=== PATIENT | male | born 1960 | race African-American/Black ===

== ENCOUNTER 2019-11-03 06:51 | Inpatient (IN) | payer MEDICAID, OTHER, SELFPAY ==
[~2019-11-03] VITALS: Ht 175.3 cm; Wt 69.4 kg
[2019-11-03] MEDS ORDERED: ONDANSETRON HCL 4MG/2ML INJ IV STA ×2 (07:38→08:57)
[2019-11-03] MEDS ORDERED: MORPHINE SULFATE 4 MG/ML CPJ (NOT FOR IM USE) IV STA ×2 (07:38→08:57)
[2019-11-03 08:22] LABS: BASOPHILS % 0.7 % (0.0-2.0); EOSINOPHILS % 1.9 % (0.0-5.0); HEMATOCRIT. 45.5 % (42.0-52.0); HEMOGLOBIN. 15.6 g/dL (14.0-18.0); LYMPHOCYTES % 27.2 % (20.0-50.0); MEAN CORPUSCULAR VOLUME 90.3 fL (80.0-94.0); MEAN PLATELET VOLUME 8.3 fl (7.4-10.4); NEUTROPHILS % 60.2 % (40.0-76.0); PLATELET 278 x1000/uL (130-400); RED BLOOD CELL COUNT 5.04 mill/uL (4.7-6.1); RED CELL DISTRIBUTION WIDTH 15.7 % (11.6-14.6)
[2019-11-03 08:29] LABS: CHLORIDE 108 mEq/L (98-107)
[2019-11-03] MEDS ORDERED: ASPIRIN 81MG TABLET PO ONE (08:45)
[2019-11-03] MEDS ORDERED: NITROGLYCERIN 0.4MG TABLET SL SL ONE (09:00)
[2019-11-03] MEDS ORDERED: ENOXAPARIN 60MG/0.6ML SYR SUBCUT ONE (09:00)
[2019-11-03] MEDS ORDERED: ONDANSETRON HCL 4MG/2ML INJ IV PRN (09:30)
[2019-11-03] MEDS ORDERED: IPRATROPIUM/ALBUTEROL 0.5-3(2.5)MG/3ML NEB HHN PRN (09:30)
[2019-11-03] MEDS ORDERED: ACETAMINOPHEN 325MG TABLET PO PRN (09:30)
[2019-11-03] MEDS: NITROGLYCERIN OINT 1GM/INCH UDPKT TD SCH ×2 (16:00→22:55)
[2019-11-03] MEDS: ATORVASTATIN CALCIUM 10MG TABLET PO SCH (21:14)
[2019-11-03 22:00] VITALS: BP 104/58
[2019-11-04] VITALS: BP 104/58
[2019-11-04 04:00] VITALS: BP 106/60
[2019-11-04] MEDS ORDERED: AMLO5TAB4 MT (04:13)
[2019-11-04] MEDS ORDERED: ESCI10TA MT (04:13)
[2019-11-04] MEDS ORDERED: AMLO5TAB88 MT (04:13)
[2019-11-04] MEDS ORDERED: AMIT25TA9 MT (04:13)
[2019-11-04] MEDS ORDERED: HYDR12.54 MT (04:13)
[2019-11-04] MEDS ORDERED: ASPI-1488 MT (04:13)
[2019-11-04] MEDS ORDERED: ATOR10TA69 MT (04:13)
[2019-11-04] MEDS ORDERED: FISH1CAP34 MT (04:13)
[2019-11-04 06:42] LABS: BASOPHILS % 0.6 % (0.0-2.0); EOSINOPHILS % 2.8 % (0.0-5.0); HEMATOCRIT. 40.8 % (42.0-52.0); HEMOGLOBIN. 13.6 g/dL (14.0-18.0); LYMPHOCYTES % 46.1 % (20.0-50.0); MEAN CORPUSCULAR HEMOGLOBIN 30.2 pg (28.0-32.0); MEAN CORPUSCULAR VOLUME 90.8 fL (80.0-94.0); MONOCYTES % 10.5 % (2.0-8.0); PLATELET 278 x1000/uL (130-400); RED BLOOD CELL COUNT 4.49 mill/uL (4.7-6.1); RED CELL DISTRIBUTION WIDTH 15.1 % (11.6-14.6)
[2019-11-04 07:14] LABS: CHLORIDE 107 mEq/L (98-107)
[2019-11-04] MEDS: NITROGLYCERIN OINT 1GM/INCH UDPKT TD SCH ×3 (07:21→21:04)
[2019-11-04 08:00] VITALS: BP 105/58
[2019-11-04] MEDS: ASPIRIN 81MG TABLET PO SCH (08:44)
[2019-11-04] MEDS: ENOXAPARIN 40MG/0.4ML SYR SUBCUT SCH (08:44)
[2019-11-04 12:00] VITALS: BP 120/77
[2019-11-04] MEDS ORDERED: PNEUMOCOCCAL 23-VAL P-SAC VAC 0.5 ML IM ONE (12:00)
[2019-11-04 20:00] VITALS: BP 104/59
[2019-11-04] MEDS: ATORVASTATIN CALCIUM 10MG TABLET PO SCH (21:00)
[2019-11-05] VITALS: BP 100/59
[2019-11-05 04:00] VITALS: BP 90/60
[2019-11-05 05:43] LABS: BASOPHILS % 0.4 % (0.0-2.0); EOSINOPHILS % 2.3 % (0.0-5.0); HEMATOCRIT. 38.9 % (42.0-52.0); HEMOGLOBIN. 13.2 g/dL (14.0-18.0); LYMPHOCYTES % 39.8 % (20.0-50.0); MEAN CORPUSCULAR VOLUME 91.2 fL (80.0-94.0); MEAN PLATELET VOLUME 8.4 fl (7.4-10.4); MONOCYTES % 10.8 % (2.0-8.0); NEUTROPHILS % 46.7 % (40.0-76.0); PLATELET 272 x1000/uL (130-400); RED BLOOD CELL COUNT 4.26 mill/uL (4.7-6.1); RED CELL DISTRIBUTION WIDTH 15.5 % (11.6-14.6)
[2019-11-05 05:48] LABS: CHLORIDE 109 mEq/L (98-107)
[2019-11-05] MEDS: NITROGLYCERIN OINT 1GM/INCH UDPKT TD SCH ×3 (06:00→21:35)
[2019-11-05 08:00] VITALS: BP 93/60
[2019-11-05] MEDS: ASPIRIN 81MG TABLET PO SCH (08:52)
[2019-11-05] MEDS: ENOXAPARIN 40MG/0.4ML SYR SUBCUT SCH (08:52)
[2019-11-05] MEDS ORDERED: HYDROCODONE/ACETAMINOPHEN 5/325MG TABLET PO PRN (11:45)
[2019-11-05 11:49] VITALS: BP 110/69
[2019-11-05 16:00] VITALS: BP 109/67
[2019-11-05 19:11] LABS: CLARITY URINE CLEAR (CLEAR); COLOR URINE YELLOW (YELLOW); KETONES URINE NEGATIVE (NEGATIVE); LEUKOCYTE ESTERASE URINE TRACE (NEGATIVE); NITRITE URINE NEGATIVE (NEGATIVE); OCCULT BLOOD URINE NEGATIVE (NEGATIVE); PH URINE 6.5 (4.5-8.0); PROTEIN URINE NEGATIVE (NEGATIVE); SPECIFIC GRAVITY URINE 1.021 (1.005-1.030); UROBILINOGEN URINE 0.2 E.U./dL (0.2-1.0)
[2019-11-05 19:20] LABS: *AMPHETAMINES SCREEN URINE NEGATIVE (NEGATIVE); *BARBITURATES SCREEN URINE NEGATIVE (NEGATIVE); *BENZODIAZEPINES SCREEN URINE NEGATIVE (NEGATIVE); *COCAINE SCREEN URINE PRESUMTIVE POSITIVE (NEGATIVE); METHADONE URINE SCREEN NEGATIVE (NEGATIVE); OPIATES URINE SCREEN NEGATIVE (NEGATIVE)
[2019-11-05 19:22] LABS: CANNABINOID URINE SCREEN NEGATIVE (NEGATIVE); PHENCYCLIDINE URINE SCREEN NEGATIVE (NEGATIVE)
[2019-11-05 20:00] VITALS: BP 117/60
[2019-11-05] MEDS: ATORVASTATIN CALCIUM 10MG TABLET PO SCH (21:34)
[2019-11-06] VITALS: BP 93/57
[2019-11-06 04:00] VITALS: BP 90/58
[2019-11-06] MEDS: NITROGLYCERIN OINT 1GM/INCH UDPKT TD SCH (05:29)
[2019-11-06 07:45] LABS: BASOPHILS % 0.9 % (0.0-2.0); EOSINOPHILS % 2.8 % (0.0-5.0); HEMATOCRIT. 40.6 % (42.0-52.0); HEMOGLOBIN. 13.9 g/dL (14.0-18.0); LYMPHOCYTES % 46.1 % (20.0-50.0); MEAN CORPUSCULAR HEMOGLOBIN 31.1 pg (28.0-32.0); MEAN CORPUSCULAR VOLUME 90.6 fL (80.0-94.0); MEAN PLATELET VOLUME 8.3 fl (7.4-10.4); MONOCYTES % 7.8 % (2.0-8.0); NEUTROPHILS % 42.4 % (40.0-76.0); PLATELET 284 x1000/uL (130-400); RED BLOOD CELL COUNT 4.48 mill/uL (4.7-6.1); RED CELL DISTRIBUTION WIDTH 14.9 % (11.6-14.6)
[2019-11-06 08:00] VITALS: BP 114/91
[2019-11-06 08:08] LABS: CHLORIDE 109 mEq/L (98-107)
[2019-11-06] MEDS: ASPIRIN 81MG TABLET PO SCH (09:59)
[2019-11-06] MEDS: ENOXAPARIN 40MG/0.4ML SYR SUBCUT SCH (10:00)
[2019-11-06 12:00] VITALS: BP 145/90
== END 2019-11-06 12:45 | disposition home or self-care (01) | DRG 190 ==
LOC: ER 06:51 → EDBEDREQ 08:50 → EDBEDREQTM 09:20 → ENRESERV 21:07 → 5WST 21:54
PROVIDERS: ADMIT Internal Medicine; ATTEND Internal Medicine
DX: I21.4 Non-ST elevation (NSTEMI) myocardial infarction (principal); E87.8 Other disorders of electrolyte and fluid balance, not elsewhere classified; I11.9 Hypertensive heart disease without heart failure; I25.110 Atherosclerotic heart disease of native coronary artery with unstable angina pectoris; E78.5 Hyperlipidemia, unspecified; F14.90 Cocaine use, unspecified, uncomplicated; F17.210 Nicotine dependence, cigarettes, uncomplicated; J44.9 Chronic obstructive pulmonary disease, unspecified; Z82.0 Family history of epilepsy and other diseases of the nervous system; Z71.6 Tobacco abuse counseling; Z71.51 Drug abuse counseling and surveillance of drug abuser; I24.9 Acute ischemic heart disease, unspecified
CPT/HCPCS: 36415; 71045; 80048; 80053; 80061; 80305; 81003; 83880; 84443; 84484; 85025; 93005; 93306; 96374; 99285; J1650; J2270; J2405